=== PATIENT | female | born 1985 | race Caucasian/White ===

== ENCOUNTER 2017-07-08 12:04 | Emergency (ER) | payer BC, OTHER ==
[2017-07-08 12:38] VITALS: BP 129/72
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
== END 2017-07-08 13:38 | disposition home or self-care (01) ==
LOC: UCCORT 12:04
DX: M25.522 Pain in left elbow (principal); Z88.1 Allergy status to other antibiotic agents
CPT/HCPCS: 99211; G0463

== ENCOUNTER 2017-07-08 12:07 | Emergency (ER) | payer BC ==
[2017-07-08 12:27] VITALS: BP 129/72
--- NOTE | 2017-07-08 13:48 | UC ---
Complaint Female HPI - HPI Summary HPI Summary: Pt presents with c/o white, thick vaginal discharge after using monistat 5 that she completed 3 days. Additionally, she has history of BV that is recurrent every 1- 2 months. Pt believes she has BV again. - History Of Current Complaint Chief Complaint: UCGU Stated Complaint: PERSONAL Time Seen by Provider: 07/08/17 12:41 Hx Obtained From: Patient Hx Last Menstrual Period: end of Jun. ?: No Onset/Duration: Gradual Onset, Lasting Days, Still Present Timing: Constant Severity Initially: Mild Severity Currently: Mild Pain Intensity: 0 Character: Dull Associated Signs And Symptoms: Positive: Vaginal Discharge Related Hx: Similar Episode/Dx as: - BV - Risk Factors Ectopic Risk Factor: Negative Ovarian Torsion Risk Factor: Negative - Allergies/Home Medications Allergies/Adverse Reactions: Allergies Allergy/AdvReac Type Severity Reaction Status Date / Time Amoxicillin Allergy Intermediate Itching Verified 07/08/17 12:38 Home Medications: Home Medications Amphetamine-Dextroamphetamine [Adderall 10 mg-] 40 mg PO DAILY 07/08/17 [ History Confirmed 07/08/17] PMH/Surg Hx/FS Hx/Imm Hx Previously Healthy: Yes - Surgical History Surgical History: Yes Surgery Procedure, Year, and Place: tonsillectomy, hysteroscopy, lung biopsy - Family History Known Family History: Positive: Hypertension - Social History Occupation: Employed Full-time Lives: With Family Alcohol Use: Occasionally Substance Use Type: None Smoking Status (MU): Never Smoked Tobacco Have You Smoked in the Last Year: No Review of Systems Constitutional: Negative Skin: Negative Eyes: Negative ENT: Negative Respiratory: Negative Cardiovascular: Negative Gastrointestinal: Negative Genitourinary: Vaginal/Penile Discharge - white and pruritic, Motor: Negative Neurovascular: Negative Musculoskeletal: Negative Neurological: Negative Psychological: Negative Is Patient Immunocompromised?: No All Other Systems Reviewed And Are Negative: Yes Physical Exam Triage Information Reviewed: Yes Appearance: Well-Appearing Vital Signs: Initial Vital Signs Temp 98.1 F 07/08/17 12:20 Pulse 70 07/08/17 12:20 Resp 18 07/08/17 12:20 BP 129/72 07/08/17 12:20 Eye Exam: Normal ENT Exam: Normal Dental Exam: Normal Neck exam: Normal Respiratory Exam: Normal Cardiovascular Exam: Normal Abdominal Exam: Normal Abdomen Description: Positive: Other: - pt declined vaginal exam Musculoskeletal Exam: Normal Neurological Exam: Normal Psychological Exam: Normal Skin Exam: Normal Complaint Female Dx - Differential Dx/Diagnosis Differential Diagnosis/HQI/PQRI: Sexually Transmitted Disease, Other - vaginitis Provider Diagnoses: vaginitis. BV? yeast infection? STD? Discharge - Discharge Plan Condition: Stable Disposition: HOME Prescriptions: Fluconazole 100 MG TAB* [Diflucan 100 MG TAB*] 100 mg PO DAILY #2 tab Metronidazole [Flagyl 500 MG TAB] 500 mg PO Q12H #14 tab Patient Education Materials: Vaginitis (ED) Referrals: Sukhwinder Snow PA [Primary Care Provider] - If Needed
== END 2017-07-08 13:36 | disposition home or self-care (01) ==
LOC: UCCORT 12:07
DX: N76.0 Acute vaginitis (principal); Z32.02 Encounter for pregnancy test, result negative; Z88.1 Allergy status to other antibiotic agents
CPT/HCPCS: 81003; 84702; 87086; 87480; 87510; 87660; 87661; 99212; G0463

== ENCOUNTER 2017-10-28 19:59 | Emergency (ER) | payer BC ==
[2017-10-28 20:11] VITALS: BP 136/89
--- NOTE | 2017-10-28 20:22 | UC ---
Respiratory Complaint HPI - HPI Summary HPI Summary: 32 year old with sarcoid . PT STATES SHE FEELS IF HER SARCOIDOSIS IS FLARING UP, CHEST CONGESTION AND COUGH X2 DAYS. has used neb but still with wheezing per patient had neb treatment 3 hours ago . Goes to [facility] but over due for xray per patient and no longer goes to Pulm. has used prednisone 20 mg 1 time last night and one time today and little relief. no fever. no phlegm or productive cough. no chills. no CP no n/v/d [ End ] - History of Current Complaint Chief Complaint: UCRespiratory Stated Complaint: RESPIRATORY Time Seen by Provider: 10/28/17 20:16 Hx Obtained From: Patient Hx Last Menstrual Period: IRREGULAR Onset/Duration: Gradual Onset Timing: Constant Severity Initially: Moderate Severity Currently: Moderate Pain Intensity: 0 Character: Cough: Nonproductive Aggravating Factors: Exertion Alleviating Factors: Bronchodilator Associated Signs And Symptoms: Positive: Wheezing - Allergies/Home Medications Allergies/Adverse Reactions: Allergies Allergy/AdvReac Type Severity Reaction Status Date / Time amoxicillin Allergy Intermediate Itching Verified 10/28/17 20:11 PMH/Surg Hx/FS Hx/Imm Hx Previously Healthy: Yes Cardiovascular History: Hypertension Respiratory History: Other - sarcoid Other Respiratory History: arcoid Psychological History: Other - add Other Psychological History: sarcoid - Surgical History Surgical History: Yes Surgery Procedure, Year, and Place: tonsillectomy, hysteroscopy, lung biopsy - Family History Known Family History: Positive: Hypertension - Social History Occupation: Employed Full-time Lives: With Family Alcohol Use: Occasionally Substance Use Type: None Smoking Status (MU): Never Smoked Tobacco Have You Smoked in the Last Year: No Review of Systems Constitutional: Fatigue Respiratory: Cough Is Patient Immunocompromised?: No All Other Systems Reviewed And Are Negative: Yes Physical Exam Triage Information Reviewed: Yes Appearance: Well-Appearing, No Pain Distress, Well-Nourished Vital Signs: Initial Vital Signs Temp 99.6 F 10/28/17 20:07 Pulse 75 10/28/17 20:07 Resp 18 10/28/17 20:07 BP 136/89 10/28/17 20:07 Pulse Ox 99 10/28/17 20:07 Eye Exam: Normal ENT Exam: Normal Dental Exam: Normal Neck exam: Normal Neck: Positive: 1 Respiratory Exam: Normal Cardiovascular Exam: Normal Musculoskeletal Exam: Normal Neurological Exam: Normal Psychological Exam: Normal Skin Exam: Normal UC Diagnostic Evaluation - Laboratory O2 Sat by Pulse Oximetry: 99 Respiratory Course/Dx - Course Course Of Treatment: Goes to [facility] but over due for xray per patient and no longer goes to Pulm. update xray today. solu medrol at this time. xray shows NAD. prednisone taper and she will take 40 mg PO BID for 3 days then 20 mg PO BID for 3 days then 10 mg PO BID for 3 days and f/u with PCP - Differential Dx/Diagnosis Provider Diagnoses: sarcoidosis exacerbation Discharge - Sign-Out/Discharge Documenting (check all that apply): Discharge - Discharge Plan Condition: Good Disposition: HOME Prescriptions: Benzonatate CAP* [Tessalon 100 MG CAP*] 100 mg PO TID PRN #[id number] PRN Reason: Cough Patient Education Materials: Sarcoidosis (ED) Referrals: Suk[facility]inder Snow PA [Primary Care Provider] - 4 Days - Billing Disposition and Condition Condition: GOOD Disposition: HOME
[2017-10-28] MEDS ORDERED: methylPREDNISolone 125 MG* 2 ML VIAL IM ONE (20:23)
--- NOTE | 2017-10-28 20:44 | RAD ---
INDICATION: Cough and a patient with a history of sarcoidosis COMPARISON: None TECHNIQUE: PA and lateral views of the chest were obtained. FINDINGS: The heart and mediastinum are normal in size and contour. The lungs are grossly clear. There is no evidence of large pleural effusion. Visualized bones are normal for the patient's age. There is no radiographic evidence of free air beneath the diaphragm IMPRESSION: No radiographic evidence of acute cardiopulmonary disease.
== END 2017-10-28 20:57 | disposition home or self-care (01) ==
LOC: UCCORT 19:59
DX: D86.9 Sarcoidosis, unspecified (principal); Z88.3 Allergy status to other anti-infective agents
CPT/HCPCS: 71046; 99212; G0463; J2930

== ENCOUNTER 2018-01-17 13:02 | Emergency (ER) | payer BC ==
[2018-01-17 13:58] VITALS: BP 117/81
--- NOTE | 2018-01-17 14:10 | UC ---
Complaint Female HPI - HPI Summary HPI Summary: has been on 2 rounds of zithrmax and prednisone in the past few months--no has sever itching no vaginal discharge is sure she has a yeast infection. Does report being 4 days in to a 7 day treatment of monistat with out any relief. no fever chills or pelvic pain. Menses is late but she states she only has female partners-- - History Of Current Complaint Hx Obtained From: Patient Hx Last Menstrual Period: 12/02/17 ?: No Onset/Duration: Sudden Onset, Lasting Days, Still Present Timing: Constant Severity Currently: Moderate Character: Burning - itching Aggravating Factor(s): Nothing Alleviating Factor(s): Nothing Associated Signs And Symptoms: Positive: Negative <Loretta Mancia - Last Filed: 01/17/18 14:59> <Yordy Waldrop - Last Filed: 01/17/18 15:21> - History Of Current Complaint Chief Complaint: UCGU Stated Complaint: FEMALE COMPLAINT Time Seen by Provider: 01/17/18 14:04 - Allergies/Home Medications Allergies/Adverse Reactions: Allergies Allergy/AdvReac Type Severity Reaction Status Date / Time amoxicillin Allergy Intermediate Itching Verified 01/17/18 13:58 Home Medications: Home Medications Omeprazole CAP* [Prilosec CAP* 20 MG] 20 mg PO BID 01/17/18 [History Confirmed 01/17/18] PMH/Surg Hx/FS Hx/Imm Hx Previously Healthy: No Cardiovascular History: Hypertension GI/ History: Gastroesophageal Reflux - Surgical History Surgical History: Yes Surgery Procedure, Year, and Place: tonsillectomy, hysteroscopy, lung biopsy - Family History Known Family History: Positive: Hypertension - Social History Occupation: Employed Full-time Lives: Alone Alcohol Use: Rare Substance Use Type: None Smoking Status (MU): Never Smoked Tobacco Have You Smoked in the Last Year: No <Loretta Mancia - Last Filed: 01/17/18 14:59> Review of Systems Constitutional: Negative Skin: Negative Eyes: Negative ENT: Negative Respiratory: Negative Cardiovascular: Negative Gastrointestinal: Negative Genitourinary: Vaginal/Penile Itching Motor: Negative Neurovascular: Negative Musculoskeletal: Negative Neurological: Negative Psychological: Negative Is Patient Immunocompromised?: No All Other Systems Reviewed And Are Negative: Yes <Loretta Mancia - Last Filed: 01/17/18 14:59> Physical Exam Triage Information Reviewed: Yes Appearance: Well-Appearing, No Pain Distress, Well-Nourished Vital Signs: Initial Vital Signs Temp 98.8 F 01/17/18 13:49 Pulse 64 01/17/18 13:49 Resp 16 01/17/18 13:49 BP 117/81 01/17/18 13:49 Pulse Ox 98 01/17/18 13:49 Vital Signs Reviewed: Yes Eye Exam: Normal Eyes: Positive: Conjunctiva Clear ENT Exam: Normal ENT: Positive: Normal ENT inspection, Hearing grossly normal, Pharynx normal Dental Exam: Normal Neck exam: Normal Neck: Positive: Supple, Nontender Respiratory Exam: Normal Respiratory: Positive: Chest non-tender, Lungs clear, Normal breath sounds, No respiratory distress, No accessory muscle use Cardiovascular Exam: Normal Cardiovascular: Positive: RRR, No Murmur, Pulses Normal, Brisk Capillary Refill Abdominal Exam: Normal Abdomen Description: Positive: Nontender, No Organomegaly, Soft Pelvic Exam: Positive: External Exam Normal, Speculum Exam Normal, No Cerv. Motion Tender, No Masses. Negative: Tender w/ Cervical Motion Musculoskeletal Exam: Normal Musculoskeletal: Positive: Strength Intact, ROM Intact, No Edema Neurological Exam: Normal Neurological: Positive: Alert, Muscle Tone Normal Psychological Exam: Normal Skin Exam: Normal <Loretta Mancia - Last Filed: 01/17/18 14:59> Vital Signs: Initial Vital Signs Temp 98.8 F 01/17/18 13:49 Pulse 64 01/17/18 13:49 Resp 16 01/17/18 13:49 BP 117/81 01/17/18 13:49 Pulse Ox 98 01/17/18 13:49 <Yordy Waldrop - Last Filed: 01/17/18 15:21> Complaint Female Dx - Course Course Of Treatment: Diflucan , vaginal swabs sent to lab follow with pcp prn - Differential Dx/Diagnosis Provider Diagnoses: vaginitis <Loretta Mancia - Last Filed: 01/17/18 14:59> Discharge - Sign-Out/Discharge Documenting (check all that apply): Discharge/Admit/Transfer - Billing Disposition and Condition Condition: STABLE Disposition: Home <Loretta Mancia - Last Filed: 01/17/18 14:59> - Billing Disposition and Condition Condition: STABLE Disposition: Home <Yordy Waldrop - Last Filed: 01/17/18 15:21> - Discharge Plan Condition: Stable Disposition: HOME Prescriptions: Fluconazole [Diflucan 150 MG (NF)] 150 mg PO ONCE #2 tab Patient Education Materials: Yeast Infection (ED), Vaginitis (ED) Referrals: Suk[facility]inder Snow PA [Primary Care Provider] - If Needed Additional Instructions: Per institutional requirements, I have reviewed the chart, however, I was not consulted specifically or made aware of this patient by the above midlevel provider. I did not personally evaluate, interact with , or disposition this patient.
== END 2018-01-17 14:55 | disposition home or self-care (01) ==
LOC: UCCORT 13:02
DX: N76.0 Acute vaginitis (principal); Z88.0 Allergy status to penicillin; I10 Essential (primary) hypertension; K21.9 Gastro-esophageal reflux disease without esophagitis
CPT/HCPCS: 81003; 84702; 87086; 87480; 87491; 87510; 87591; 87661; 99212; G0463

== ENCOUNTER 2018-03-01 21:27 | Emergency (ER) | payer BC, OTHER ==
[2018-03-01 21:44] VITALS: BP 139/94
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
--- NOTE | 2018-03-02 07:49 | RAD ---
Indication: Right ankle pain 3 views of the right ankle demonstrates no fracture. Ankle mortise is intact. No other bone or joint abnormality is noted. IMPRESSION: No fracture of the right ankle is noted. R0
--- NOTE | 2018-03-02 07:51 | RAD ---
INDICATION: Right foot pain. TECHNIQUE: 3 views of the right foot were obtained. FINDINGS: The bones are in normal alignment. No fracture is seen. Joint spaces appear maintained. There is flattening of the second metatarsal head most consistent with Freiberg's necrosis. IMPRESSION: 1. NO EVIDENCE FOR FRACTURE. 2. 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 R2
== END 2018-03-01 22:05 | disposition home or self-care (01) ==
LOC: UCCORT 21:27
DX: S93.401A Sprain of unspecified ligament of right ankle, initial encounter (principal); S93.601A Unspecified sprain of right foot, initial encounter; I10 Essential (primary) hypertension; Z79.899 Other long term (current) drug therapy; Z88.0 Allergy status to penicillin; X50.1XXA Overexertion from prolonged static or awkward postures, initial encounter; Y92.9 Unspecified place or not applicable
CPT/HCPCS: 99212; G0463

== ENCOUNTER 2018-05-22 13:19 | Emergency (ER) | payer BC ==
[2018-05-22 14:09] VITALS: BP 140/84
--- NOTE | 2018-05-23 13:43 | UC ---
Discharge - Sign-Out/Discharge Documenting (check all that apply): Post-Discharge Follow Up All imaging exams completed and their final reports reviewed: No Studies - Discharge Plan Condition: Stable Disposition: LEFT WITHOUT BEING SEEN Referrals: Sukhwinder Snow PA [Primary Care Provider] - - Billing Disposition and Condition Condition: STABLE Disposition: Left Without Being Seen
== END 2018-05-22 14:46 | disposition left against medical advice (07) ==
LOC: UCCORT 13:19
DX: L98.9 Disorder of the skin and subcutaneous tissue, unspecified (principal); Z53.21 Procedure and treatment not carried out due to patient leaving prior to being seen by health care provider

== ENCOUNTER 2018-06-02 18:05 | Emergency (ER) | payer BC, OTHER ==
[2018-06-02 18:47] VITALS: BP 143/99
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
== END 2018-06-02 19:15 | disposition home or self-care (01) ==
LOC: UCCORT 18:05
DX: S06.0X9A Concussion with loss of consciousness of unspecified duration, initial encounter (principal); S00.33XA Contusion of nose, initial encounter; Y04.2XXA Assault by strike against or bumped into by another person, initial encounter; Y92.10 Unspecified residential institution as the place of occurrence of the external cause; Y99.0 Civilian activity done for income or pay
CPT/HCPCS: 99211; G0463